=== PATIENT | male | born 1980 | race Caucasian/White ===

== ENCOUNTER 2019-11-18 12:53 | Emergency (ER) | payer SELFPAY ==
[2019-11-18] MEDS ORDERED: ceFAZolin 1 GM in Premix Bag 1 BAG IV ONE (12:55)
[2019-11-18] MEDS ORDERED: ceFAZolin 1 GM Vial ONE (12:56)
[2019-11-18] MEDS ORDERED: fentaNYL 100 MCG/2 ML SDV ONE (13:01)
[2019-11-18] MEDS ORDERED: Ondansetron 4 MG/2 ML SDV IVPUSH ONE (13:02)
[2019-11-18] MEDS ORDERED: fentaNYL 50 MCG/ML SDV IVPUSH ONE (13:02)
[2019-11-18] MEDS ORDERED: Ondansetron 4 MG/2 ML SDV ONE (13:02)
[2019-11-18] MEDS ORDERED: Sodium Chloride 0.9% 1,000 ML IV ONE (13:02)
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
[2019-11-18 13:41] LABS: BLOOD UREA NITROGEN,BUN 13 mg/dL (7.0-18.0); CARBON DIOXIDE,CO2 31.9 mmol/L (21.0-32.0); CHLORIDE,CL 104 mmol/L (98-107); GLUCOSE RANDOM 109 mg/dL (74-106); POTASSIUM,K 4.3 mmol/L (3.5-5.1); SODIUM,NA 143 mmol/L (136-148)
[2019-11-18] MEDS ORDERED: Morphine 4 MG/ML Syringe IVPUSH ONE (13:49)
[2019-11-18] MEDS ORDERED: Sodium Chloride 0.9% 1,000 ML IV SCH (14:30)
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
== END 2019-11-18 13:55 | disposition other institution (70) ==
LOC: MW.ED 12:53
DX: S91.001A Unspecified open wound, right ankle, initial encounter (principal); W32.0XXA Accidental handgun discharge, initial encounter
CPT/HCPCS: 36415; 73590; 73620; 80053; 85025; 85610; 86850; 86900; 86901; 96361; 96365; 96375; 99285; J0690; J2270; J2405; J3010; J7030